=== PATIENT | male | born 1970 ===

== ENCOUNTER 2018-03-19 22:05 | Emergency (ER) | payer BC ==
[~2018-03-19] VITALS: Ht 188 cm; Wt 88.8 kg
[2018-03-19 22:07] VITALS: TEMP 37.9; Ht 188 cm; Wt 88.8 kg
--- NOTE | 2018-03-19 22:35 | DIAGNOSTIC IMAGING REPORT ---
L ANKLE MIN 3 VIEWS ROUTINE CLINICAL HISTORY: LEFT ankle injury, lateral swelling. COMPARISON: None FINDINGS: Alignment of the left ankle is anatomic. Talar dome is intact. There is no acute fracture. Marked lateral ankle soft tissue swelling is noted. IMPRESSION: 1. No acute fracture or dislocation of the left ankle. 2. Marked lateral ankle soft tissue swelling. Electronically signed by: Julio Cano M.D. 03/19/2018 10:34 PM Dictated Date/Time: 03/19/2018 10:34 PM
--- NOTE | 2018-03-19 23:09 | EMERGENCY ROOM VISIT NOTE ---
History First contact with patient: 22:09 Chief Complaint: ANKLE PAIN Stated Complaint: SWOLLEN LEFT ANKLE,POSSIBLY BROKEN History of Present Illness The patient is a 47 year old male who presents to the Emergency Room with complaints of a left ankle injury. The patient states that he slid off of a step, rolling his ankle approximately 1 hour prior to arrival. He reports an aching pain rated 3/10 in the lateral ankle. He has walked on it, but does state that his pain increases with walking. He has not iced the ankle or taken any medication for pain. He does report a history of a sprained ankle several years ago. He denies any numbness, tingling or weakness. He denies any other injuries. He denies any pain at the knee or foot. Review of Systems A complete 6 point review of systems was reviewed with the patient with pertinent positives and negatives as per history of present illness. All else were negative. Past Medical/Surgical History Medical Problems: (1) No significant active problems Social History Smoking Status: Never Smoker Alcohol Use: heavy Housing Status: unknown Occupation Status: other Physical Exam Vital Signs Date Time Temp Pulse Resp B/P (MAP) Pulse Ox O2 Delivery O2 Flow Rate FiO2 03/19/18 23:16 63 16 121/73 98 03/19/18 22:07 37.9 73 18 142/85 97 Room Air Physical Exam VITALS: Vitals are noted on the nurse's note and reviewed by myself. Vital signs stable. GENERAL: This is a 47-year-old, in no acute distress, nondiaphoretic, well- developed well-nourished. SKIN: No lacerations or abrasions per MUSCULOSKELETAL: There is moderate lateral soft tissue swelling of the left ankle. There is tenderness to palpation over the lateral malleolus. No tenderness over the medial malleolus or anterior ankle. No tenderness over the proximal tibia/fibula or foot. Full range of motion of the ankle. Capillary refill within 2 seconds. NEURO: Patient was alert and oriented to person place and time. Distal sensation intact. Medical Decision & Procedures ER Provider Diagnostic Interpretation: L ANKLE MIN 3 VIEWS ROUTINE CLINICAL HISTORY: LEFT ankle injury, lateral swelling. COMPARISON: None FINDINGS: Alignment of the left ankle is anatomic. Talar dome is intact. There is no acute fracture. Marked lateral ankle soft tissue swelling is noted. IMPRESSION: 1. No acute fracture or dislocation of the left ankle. 2. Marked lateral ankle soft tissue swelling. Medical Decision Differential diagnosis includes fracture, sprain, contusion, dislocation, among others. The patient was evaluated as above. X-ray was obtained and shows no evidence of fracture. Patient was placed in an Alphonso wrap, gel splint and crutches. He was advised to follow-up with orthopedics if he does not have improvement. He verbalized understanding of my assessment and treatment plan and was discharged home in good condition. Medication Reconcilliation Current Medication List: was personally reviewed by me Blood Pressure Screening Patient's blood pressure: Normal blood pressure Impression Primary Impression: Left ankle sprain Departure Information Dispostion Home / Self-Care Condition GOOD Referrals No Doctor, Assigned (PCP) Zuhair Bonilla D.O. Patient Instructions [facility] Additional Instructions You have been treated in the Emergency Department for an Ankle sprain. For pain control, you can use the following [id number] medicines (if >12 yo): - Regular strength (325mg/tab) Tylenol (acetaminophen) 2 tabs every 4-6 hours as needed. Do not exceed 12 tablets in a 24 hour period. Avoid taking more than 4 grams (4000 mg) of Tylenol per day. This includes any other sources of acetaminophen you may take on a regular basis. - Regular strength (200 mg/tab) Advil (ibuprofen) 1-2 tabs every 4-6 hours as needed. Do not exceed a dose of 3200 mg per day. If this is a recent injury (<24 hrs), ice can be applied to the area of pain for the first 3 days to help decrease pain and inflammation. You have been provided the number for an Orthopaedic Surgeon. Call them to schedule follow-up if you are not having improvement of the ankle pain. Wear the gel splint and use the crutches until you are able to walk without difficulty. Return to the Emergency Department if your current symptoms worsen despite treatment course outlined above, or if you develop any of the following symptoms : intractable pain despite aforementioned treatment course or new onset of numbness or tingling of the foot. Problem Qualifiers Primary Impression: Left ankle sprain Encounter type: initial encounter Involved ligament of ankle: unspecified ligament Qualified Codes: S93.402A - Sprain of unspecified ligament of left ankle, initial encounter
[2018-03-19 23:16] VITALS: BP 121/73; PULSE 63; O2SAT 98
== END 2018-03-19 23:17 | disposition home or self-care (01) ==
LOC: C.EDB 22:06 → C.EDC 23:17
DX: S93.402A Sprain of unspecified ligament of left ankle, initial encounter (principal); W10.9XXA Fall (on) (from) unspecified stairs and steps, initial encounter; Z87.828 Personal history of other (healed) physical injury and trauma